=== PATIENT | female | born 1955 | race Caucasian/White ===

== ENCOUNTER 2022-01-06 08:00 | Outpatient (CLI) | payer OTHER ==
--- NOTE | 2022-01-06 17:33 | XRAY Report ---
PROCEDURE: Foot 3 View RT INDICATIONS: RIGHT FOOT PAIN TECHNIQUE: 3 views of the foot were acquired. COMPARISON: None FINDINGS: Bones: No fractures or dislocations. No suspicious bony lesions. The calcaneal pitch is 10.5 degre es. Soft tissues: No tibiotalar joint effusion. Achilles tendon appears normal. A soft tissue mass is n oted at the dorsum of the foot. No underlying bony abnormality. IMPRESSION: 1. Pes planus. 2. Soft tissue mass without underlying bony abnormality. If further characterization is warranted, ul trasound of this region could be used. Reviewed by: Mitra Rodriguez MD on 01/06/2022 5:32 PM PDT Approved by: Mitra oRdriguez MD on 01/06/2022 5:32 PM PDT Station ID: [id number]
== END 2022-01-06 23:59 | disposition home or self-care (01) ==
LOC: DI.WOS 08:00
PROVIDERS: ATTEND Physician Assistant
DX: M79.671 Pain in right foot (principal); M21.41 Flat foot [pes planus] (acquired), right foot; R22.41 Localized swelling, mass and lump, right lower limb